=== PATIENT | male | born 1950 | race Caucasian/White ===

== ENCOUNTER 2017-05-24 14:19 | Emergency (ER) | payer OTHER, MEDICARE ==
[2017-05-24 15:40] LABS: ABSOLUTE EOSINOPHILS # (AUTO) 0.4 10^3/uL (0.0-0.6); ABSOLUTE LYMPHOCYTES (AUTO) 0.9 10^3/uL (0.5-4.7); ABSOLUTE MONOCYTES (AUTO) 0.7 10^3/uL (0.1-1.4); ABSOLUTE NEUT (AUTO) 8.6 10^3/uL (1.7-8.2); BASOPHILS % (AUTO) 0.3 % (0-2); EOSINOPHILS % (AUTO) 3.8 % (0-6); HEMATOCRIT 39.2 % (37.9-51.0); HEMOGLOBIN 13.2 g/dL (13.5-17.0); HGB HCT DIFFERENCE 0.4; LYMPHOCYTES % (AUTO) 8.8 % (13-45); MEAN CORPUSCULAR HEMOGLOBIN 29.8 pg (27.0-33.4); MEAN CORPUSCULAR HGB CONC 33.7 g/dL (32.0-36.0); MEAN CORPUSCULAR VOLUME 88 fl (80-97); MONOCYTES % (AUTO) 6.8 % (3-13); RED BLOOD COUNT 4.44 10^6/uL (4.35-5.55); RED CELL DISTRIBUTION WIDTH 13.9 % (11.5-14.0); SEGMENTED NEUTROPHILS % (AUTO) 80.3 % (42-78); WHITE BLOOD COUNT 10.7 10^3/uL (4.0-10.5)
[2017-05-24 16:07] LABS: ALANINE AMINOTRANSFERASE 38 U/L (21-72); ALBUMIN 4.5 g/dL (3.5-5.0); ALKALINE PHOSPHATASE 94 U/L (38-126); ANION GAP 12 (5-19); ASPARTATE AMINO TRANSFERASE 32 U/L (17-59); BILIRUBIN,DIRECT 0.3 mg/dL (0.0-0.4); BILIRUBIN,TOTAL 0.6 mg/dL (0.2-1.3); BLOOD UREA NITROGEN 24 mg/dL (7-20); CALCIUM 9.6 mg/dL (8.4-10.2); CARBON DIOXIDE 24 mmol/L (22-30); CHLORIDE 103 mmol/L (98-107); CREATININE RESULT 1.11 mg/dL (0.52-1.25); GLUCOSE 163 mg/dL (75-110); POTASSIUM 4.7 mmol/L (3.6-5.0); SODIUM 138.5 mmol/L (137-145); TOTAL PROTEIN 8.1 g/dL (6.3-8.2)
[2017-05-24] MEDS ORDERED: HYDROMORPHONE HCL INJ/PF 2 MG/ML AMPULE IV ONE (16:22)
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
[2017-05-24 17:30] VITALS: BP 140/79
== END 2017-05-24 17:31 | disposition home or self-care (01) ==
LOC: ER 14:19
DX: S10.93XA Contusion of unspecified part of neck, initial encounter (principal); M54.5 Low back pain; V89.2XXA Person injured in unspecified motor-vehicle accident, traffic, initial encounter
CPT/HCPCS: 99284; 36415; 85025; 80053; 70450; 71260; 72125; 74177; J1170

== ENCOUNTER → 2018-02-15 | Outpatient (CLI) | payer MEDICARE ==
--- NOTE | 2018-02-15 12:01 | RADIOLOGY REPORT (SQ) ---
EXAM DESCRIPTION: VENOUS BILATERAL LOWER COMPLETED DATE/TIME: 02/15/2018 11:52 am REASON FOR STUDY: SWELLING R22.43 LOCALIZED SWELLING, MASS AND LUMP, LOWER LIMB, BILATE COMPARISON: None. TECHNIQUE: Dynamic and static charles scale and color images acquired of both lower extremity venous sy stems. Selected spectral images acquired with additional compression and augmentation maneuvers. Imag es stored on PACS. LIMITATIONS: None. FINDINGS: RIGHT LEG COMMON FEMORAL AND FEMORAL: Normal phasicity, compression and augmentation. No visualized echogenic m aterial on charles scale. No defects on color images. POPLITEAL: Normal compression and augmentation. No visualized echogenic material on charles scale. No de fects on color images. CALF VESSELS: Normal compression and augmentation. No visualized echogenic material on charles scale. No defects on color image. GSV AND SSV: Normal compression. No visualized echogenic material on charles scale. No defects on color images. ANY DEEP VENOUS INSUFFICIENCY: Not evaluated. ANY EVIDENCE OF POPLITEAL CYST: No. OTHER: No other significant finding. LEFT LEG COMMON FEMORAL AND FEMORAL: Normal phasicity, compression and augmentation. No visualized echogenic m aterial on charles scale. No defects on color images. POPLITEAL: Normal compression and augmentation. No visualized echogenic material on charles scale. No de fects on color images. CALF VESSELS: Normal compression and augmentation. No visualized echogenic material on charles scale. No defects on color images. GSV AND SSV: Normal compression. No visualized echogenic material on charles scale. No defects on color images. ANY DEEP VENOUS INSUFFICIENCY: Not evaluated. ANY EVIDENCE POPLITEAL CYST: No. OTHER: No other significant finding. IMPRESSION: NO EVIDENCE DVT OR SVT IN EITHER LEG. TECHNICAL DOCUMENTATION: JOB ID: [id number] [employer]- All Rights Reserved Reading location - IP/workstation name: [email or web address]
== END ==
LOC: SP 10:36
PROVIDERS: ATTEND Internal Medicine
DX: R22.43 Localized swelling, mass and lump, lower limb, bilateral (principal)
CPT/HCPCS: 93970

== ENCOUNTER 2018-05-21 15:34 | Emergency (ER) | payer MEDICARE ==
[2018-05-21] MEDS ORDERED: DIPHENHYDRAMINE HCL 50 MG CAPSULE PO ONE (16:04)
[2018-05-21] MEDS ORDERED: NORMAL SALINE 500 ML IV ONE (16:06)
--- NOTE | 2018-05-21 16:13 | ER Document Report ---
ED Medical Screen (RME) - General Chief Complaint: Allergic Reaction Stated Complaint: POSSIBLE ALLERGIC REACTION Time Seen by Provider: 05/21/18 15:58 Notes: Patient is a 67-year-old male presents with 1 day of a diffuse rash on his chest wall, back and abdomen after starting doxycycline for a UTI. He took Benadryl 6 hours ago. He is scheduled for an LVAD at [facility] tomorrow. Denies palms, mouth involvement or foot involvement. PE: Diffuse macular rash. No desquamation of hands or mouth. Tachycardia. I have greeted and performed a rapid initial assessment of this patient. A comprehensive ED assessment and evaluation of the patient, analysis of test results and completion of the medical decision making process will be conducted by additional ED providers. TRAVEL OUTSIDE OF THE [place] IN LAST 30 DAYS: No - Related Data Allergies/Adverse Reactions: No Known Allergies Allergy (Verified 05/21/18 15:36) Past Medical History - Social History Chew tobacco use (# tins/day): No Frequency of alcohol use: None Drug Abuse: None - Past Medical History Cardiac Medical History: Reports: Hx Congestive Heart Failure Renal/ Medical History: Denies: Hx Peritoneal Dialysis - Immunizations Hx Diphtheria, Pertussis, Tetanus Vaccination: No Physical Exam - Vital signs Vitals: Pulse Resp BP Pulse Ox 107 H 16 93/65 L 100 05/21/18 15:41 05/21/18 15:41 05/21/18 15:41 05/21/18 15:41 Course - Vital Signs Vital signs: Temp Pulse Resp BP Pulse Ox 107 H 16 93/65 L 100 05/21/18 15:41 05/21/18 15:41 05/21/18 15:41 05/21/18 15:41 Doctor's Discharge - Discharge Referrals: SCOTT HATFIELD MD [Primary Care Provider] - Follow up as needed
[2018-05-21 16:24] LABS: ABSOLUTE EOSINOPHILS # (AUTO) 0.1 10^3/uL (0.0-0.6); ABSOLUTE LYMPHOCYTES (AUTO) 0.5 10^3/uL (0.5-4.7); ABSOLUTE MONOCYTES (AUTO) 0.5 10^3/uL (0.1-1.4); ABSOLUTE NEUT (AUTO) 8.2 10^3/uL (1.7-8.2); BASOPHILS % (AUTO) 0.3 % (0-2); EOSINOPHILS % (AUTO) 1.5 % (0-6); HEMATOCRIT 38.8 % (37.9-51.0); HEMOGLOBIN 12.9 g/dL (13.5-17.0); LYMPHOCYTES % (AUTO) 5.1 % (13-45); MEAN CORPUSCULAR HGB CONC 33.2 g/dL (32.0-36.0); MEAN CORPUSCULAR VOLUME 84 fl (80-97); MONOCYTES % (AUTO) 5.5 % (3-13); PLATELET COUNT 168 10^3/uL (150-450); RED BLOOD COUNT 4.59 10^6/uL (4.35-5.55); SEGMENTED NEUTROPHILS % (AUTO) 87.6 % (42-78); TOTAL CELLS COUNTED % (AUTO) 100 %; WHITE BLOOD COUNT 9.4 10^3/uL (4.0-10.5)
[2018-05-21] MEDS ORDERED: METHYLPREDNISOLONE INJ 125 MG/2 ML SDV IV ONE (16:36)
[2018-05-21] MEDS ORDERED: DIPHENHYDRAMINE HCL 50 MG/ML VIAL IV ONE (16:36)
--- NOTE | 2018-05-21 16:45 | ER Document Report ---
ED General - General Chief Complaint: Allergic Reaction Stated Complaint: POSSIBLE ALLERGIC REACTION Time Seen by Provider: 05/21/18 15:58 Mode of Arrival: Ambulatory Information source: Patient, Relative, Dr. Arellano, [facility] Records Notes: 67-year-old male with congestive heart failure, coronary artery disease diabetes , hypertension presents with complaint of rash that started 1 day prior to arrival. Patient was placed on doxycycline for urinary tract infection 5 days prior to arrival. Daughter is at the bedside and states that yesterday patient developed a rash on his chest, back and upper legs. She immediately stopped the antibiotic and administered Benadryl. Today the rash worsened and patient had associated shortness of breath which has now resolved. Patient's urologist Dr. Espinosa advised to be seen in the emergency department. Patient was now placed on Bactrim. Patient denies difficulty swallowing, chest and abdominal pain. [facility] for an [facility]. TRAVEL OUTSIDE OF THE [place] IN LAST 30 DAYS: No - HPI Onset: Yesterday Onset/Duration: Gradual, Persistent, Worse Quality of pain: No pain Severity: None Associated symptoms: Shortness of breath Exacerbated by: Denies Relieved by: Denies Similar symptoms previously: No Recently seen / treated by doctor: Yes - Related Data Allergies/Adverse Reactions: doxycycline Allergy (Verified 05/21/18 16:39) Past Medical History - General Information source: Patient, Relative, Dr. Arellano, [facility] Records - Social History Smoking Status: Former Smoker Chew tobacco use (# tins/day): No Frequency of alcohol use: None Drug Abuse: None Lives with: Family Family History: Reviewed & Not Pertinent Patient has suicidal ideation: No Patient has homicidal ideation: No - Past Medical History Cardiac Medical History: Reports: Hx Congestive Heart Failure, Hx Coronary Artery Disease, Hx Hypertension Endocrine Medical History: Reports: Hx Diabetes Mellitus Type 1 Renal/ Medical History: Denies: Hx Peritoneal Dialysis - Immunizations Hx Diphtheria, Pertussis, Tetanus Vaccination: No Hx Pneumococcal Vaccination: 07/04/13 Review of Systems - Review of Systems Constitutional: Malaise, Weakness - Ongoing EENT: No symptoms reported Cardiovascular: denies: Syncope Respiratory: Short of breath - Resolved, Wheezing Gastrointestinal: No symptoms reported Genitourinary: No symptoms reported Male Genitourinary: No symptoms reported Musculoskeletal: No symptoms reported Skin: Rash Hematologic/Lymphatic: No symptoms reported Neurological/Psychological: denies: Lost consciousness, Headaches -: Yes All other systems reviewed and negative Physical Exam - Vital signs Vitals: Pulse Resp BP Pulse Ox 107 H 16 93/65 L 100 05/21/18 15:41 05/21/18 15:41 05/21/18 15:41 05/21/18 15:41 - Notes Notes: PHYSICAL EXAMINATION: GENERAL: Well-appearing, well-nourished and in no acute distress. HEAD: Atraumatic, normocephalic. EYES: Pupils equal round and reactive to light, extraocular movements intact, sclera anicteric, conjunctiva are normal. ENT: Nares patent, oropharynx clear without exudates. Moist mucous membranes. No oral lesions NECK: Normal range of motion, supple without lymphadenopathy LUNGS: Breath sounds clear to auscultation bilaterally and equal. No wheezes rales or rhonchi. HEART: Regular rate and rhythm without murmurs ABDOMEN: Soft, nontender, nondistended abdomen. No guarding, no rebound. No masses appreciated. Musculoskeletal: Normal range of motion, no pitting or edema. No cyanosis. NEUROLOGICAL: Cranial nerves grossly intact. Normal speech, normal gait. Normal sensory, motor exams PSYCH: Normal mood, normal affect. SKIN: Diffuse urticaria of the trunk, consistent with drug rash, no skin sloughing Course - Re-evaluation Re-evalutation: Laboratory 05/21/18 05/21/18 16:10 16:10 WBC 9.4 RBC 4.59 Hgb 12.9 L Hct 38.8 MCV 84 MCH 28.0 MCHC 33.2 RDW 20.0 H Plt Count 168 Seg Neutrophils % 87.6 H Lymphocytes % 5.1 L Monocytes % 5.5 Eosinophils % 1.5 Basophils % 0.3 Absolute Neutrophils 8.2 Absolute Lymphocytes 0.5 Absolute Monocytes 0.5 Absolute Eosinophils 0.1 Absolute Basophils 0.0 Sodium 139.8 Potassium 4.8 Chloride 100 Carbon Dioxide 23 Anion Gap 17 BUN 96 H Creatinine 1.26 H Est GFR ( Amer) > 60 Est GFR (Non-Af Amer) 57 L Glucose 188 H Calcium 9.9 Total Bilirubin 1.5 H Direct Bilirubin 1.0 H Neonat Total Bilirubin Not Reportable Neonat Direct Bilirubin Not Reportable Neonat Indirect Bili Not Reportable AST 33 ALT 20 L Alkaline Phosphatase 110 Total Protein 9.0 H Albumin 4.2 Chest X-Ray 05/21/18 16:15 IMPRESSION: Left lung base findings are nonspecific, and may represent a developing pneumonitis, scarring, and/or a small pleural effusion. 05/21/18 22:51 67-year-old male with congestive heart failure, coronary artery disease diabetes , hypertension presents with complaint of rash that started 1 day prior to arrival. Patient was placed on doxycycline for urinary tract infection 5 days prior to arrival. Daughter is at the bedside and states that yesterday patient developed a rash on his chest, back and upper legs. She immediately stopped the antibiotic and administered Benadryl. Today the rash worsened and patient had associated shortness of breath which has now resolved. Patient's urologist Dr. Espinosa advised to be seen in the emergency department. Patient was now placed on Bactrim. Patient denies difficulty swallowing, chest and abdominal pain. Patient is [facility] to [facility] in preparation for an LVAD. Patient received Benadryl, prednisone, IV fluids during his ED course. On reevaluation he reports an improvement in his shortness of breath. Rash is still present. No evidence of Eddy-Santana's. Patient provided the opportunity to ask questions, and express concerns. Discharge instructions discussed. Patient is agreeable with discharge home. Return indications explained and discussed with the patient who displays understanding. Patient encouraged to return to the emergency department immediately with any concerns. 05/21/18 22:52 - Vital Signs Vital signs: Temp Pulse Resp BP Pulse Ox 107 H 19 93/77 L 92 05/21/18 15:41 05/21/18 18:01 05/21/18 18:01 05/21/18 18:01 - Laboratory Result Diagrams: 05/21/18 16:10 05/21/18 16:10 Laboratory results interpreted by me: 05/21/18 05/21/18 16:10 16:10 Hgb 12.9 L RDW 20.0 H Seg Neutrophils % 87.6 H Lymphocytes % 5.1 L BUN 96 H Creatinine 1.26 H Est GFR (Non-Af Amer) 57 L Glucose 188 H Total Bilirubin 1.5 H Direct Bilirubin 1.0 H ALT 20 L Total Protein 9.0 H - Diagnostic Test Radiology reviewed: Image reviewed, Reports reviewed Discharge - Discharge Clinical Impression: Drug rash Allergic reaction Qualifiers: Encounter type: initial encounter Qualified Code(s): T78.40XA - Allergy, unspecified, initial encounter Condition: Good Disposition: HOME, SELF-CARE Instructions: Acute Allergic Reaction ([facility]), Acute Allergic Reaction to Drugs ( [facility]) Additional Instructions: Follow up with your physician tomorrow for further care or return to the ED IMMEDIATELY if symptoms worsen or new concerns occur. If you cannot afford to follow up with your primary care physician a list of low cost clinics have been provided at the end of your discharge papers as well. Referrals: SCOTT HATFIELD MD [Primary Care Provider] - Follow up as needed
[2018-05-21 16:49] LABS: ALANINE AMINOTRANSFERASE 20 U/L (21-72); ALBUMIN 4.2 g/dL (3.5-5.0); ALKALINE PHOSPHATASE 110 U/L (38-126); ANION GAP 17 (5-19); ASPARTATE AMINO TRANSFERASE 33 U/L (17-59); BILIRUBIN,TOTAL 1.5 mg/dL (0.2-1.3); BLOOD UREA NITROGEN 96 mg/dL (7-20); CALCIUM 9.9 mg/dL (8.4-10.2); CARBON DIOXIDE 23 mmol/L (22-30); CHLORIDE 100 mmol/L (98-107); GLUCOSE 188 mg/dL (75-110); POTASSIUM 4.8 mmol/L (3.6-5.0); SODIUM 139.8 mmol/L (137-145)
--- NOTE | 2018-05-21 16:55 | RADIOLOGY REPORT (SQ) ---
EXAM DESCRIPTION: CHEST SINGLE VIEW COMPLETED DATE/TIME: 05/21/2018 4:46 pm REASON FOR STUDY: SOB COMPARISON: 05/24/2017 EXAM PARAMETERS: NUMBER OF VIEWS: One view. TECHNIQUE: Single frontal radiographic view of the chest acquired. RADIATION DOSE: NA LIMITATIONS: None. FINDINGS: LUNGS AND PLEURA: Blunting and hazy opacification of the left costophrenic angle. No foca l consolidation. No pneumothorax. MEDIASTINUM AND HILAR STRUCTURES: No masses. Contour normal. HEART AND VASCULAR STRUCTURES: Borderline cardiomegaly. Central vasculature appears normal. BONES: No acute findings. HARDWARE: None in the chest. OTHER: No other significant finding. IMPRESSION: Left lung base findings are nonspecific, and may represent a developing pneumonitis, sca rring, and/or a small pleural effusion. TECHNICAL DOCUMENTATION: JOB ID: [id number] [employer]- All Rights Reserved Reading location - IP/workstation name: [email or web address]
[2018-05-21 18:55] VITALS: BP 93/77
== END 2018-05-21 19:05 | disposition home or self-care (01) ==
LOC: ER 15:34
DX: L27.0 Generalized skin eruption due to drugs and medicaments taken internally (principal); T36.4X5A Adverse effect of tetracyclines, initial encounter; R06.02 Shortness of breath; I50.9 Heart failure, unspecified; I25.10 Atherosclerotic heart disease of native coronary artery without angina pectoris; I11.0 Hypertensive heart disease with heart failure; E10.9 Type 1 diabetes mellitus without complications; Z87.891 Personal history of nicotine dependence
CPT/HCPCS: 99284; 96361; 96374; 36415; 85025; 80053; 71045; A9270; J2930; J7040

== ENCOUNTER 2018-06-17 12:54 | Emergency (ER) | payer MEDICARE ==
--- NOTE | 2018-06-17 13:22 | ER Document Report ---
ED General - General Chief Complaint: General Weakness Stated Complaint: WEAKNESS Time Seen by Provider: 06/17/18 13:05 Information source: Patient, Emergency Med Personnel Notes: Patient is a very kind 67-year-old male with an extensive past medical history including a recent injection fraction calculation around 20% with discharge from [facility] around 5 days ago after defibrillator was placed. The patient was actually discharged with port access IV drip dobutamine. Patient presents today because he states he has had some increased shortness of breath when laying flat as well as some bilateral lower extremity edema that he states has developed since being discharged from the hospital. He denies any and all chest pain, fevers, cough, abdominal pain or swelling, or vomiting/diarrhea. Patient states he was told that if this trial was not successful that the patient was most likely be transferred to an LVAD. TRAVEL OUTSIDE OF THE [place] IN LAST 30 DAYS: No - HPI Onset: Other - See above Onset/Duration: Gradual Quality of pain: No pain Severity: Moderate Pain Level: Denies Associated symptoms: Weakness, Other - See above Exacerbated by: Supine, Walking Relieved by: Denies Similar symptoms previously: Yes Recently seen / treated by doctor: Yes - Related Data Allergies/Adverse Reactions: doxycycline Allergy (Verified 05/21/18 16:39) Past Medical History - General Information source: Patient - Social History Smoking Status: Unknown if Ever Smoked Cigarette use (# per day): No Chew tobacco use (# tins/day): No Smoking Education Provided: No Frequency of alcohol use: None Drug Abuse: None Family History: Reviewed & Not Pertinent - Past Medical History Cardiac Medical History: Reports: Hx Congestive Heart Failure, Hx Coronary Artery Disease, Hx Hypertension Endocrine Medical History: Reports: Hx Diabetes Mellitus Type 1 Renal/ Medical History: Denies: Hx Peritoneal Dialysis - Immunizations Hx Diphtheria, Pertussis, Tetanus Vaccination: No Hx Pneumococcal Vaccination: 07/04/13 Review of Systems - Review of Systems Constitutional: denies: Fever EENT: denies: Eye discharge, Nose discharge Cardiovascular: denies: Chest pain, Palpitations Respiratory: Short of breath. denies: Cough, Hemoptysis, Wheezing Gastrointestinal: denies: Vomiting Genitourinary: denies: Dysuria Skin: Other - no hives. denies: Rash Neurological/Psychological: Other - no slurred speech -: Yes All other systems reviewed and negative Physical Exam - Vital signs Vitals: Resp BP Pulse Ox 20 97/64 L 100 06/17/18 13:03 06/17/18 13:03 06/17/18 13:03 Notes: Reviewed vital signs and nursing note as charted by RN. CONSTITUTIONAL: Alert and oriented and responds appropriately to questions. Well -appearing; well-nourished HEAD: Normocephalic; atraumatic EYES: PERRL; Conjunctivae clear, sclerae non-icteric ENT: Normal nose; no rhinorrhea; moist mucous membranes; pharynx without lesions noted NECK: Supple without meningismus; non-tender CARD: Regular rate and rhythm; no murmurs; symmetric distal pulses RESP: Normal chest excursion without splinting or tachypnea; breath sounds clear and equal bilaterally; no rhonchi or wheezes. Some mild bilateral lower lung Joyce ABD/GI: Normal bowel sounds; non-distended; soft, non-tender BACK: The back appears normal and is non-tender to palpation EXT: Normal ROM in all joints; non-tender to palpation; no edema SKIN: No acute lesions noted NEURO: Moves all extremities equally; Motor and sensory function intact PSYCH: The patient's mood and manner are appropriate. Grooming and personal hygiene are appropriate Course - Re-evaluation Re-evalutation: 06/17/18 13:16 Given the above history and physical examination, we will place the patient on the monitor. Vital signs are stable with a blood pressure of 95/57. Patient's dobutamine pump still in place so we will not manipulate this at this time. I have asked the patient repeatedly if he feels as if the shortness of breath when supine something new since being discharged. He states that it is. I have questioned him multiple times whether he believes this is anxiety related or more just the shortness of breath from his heart failure. He states given the leg swelling, with a worsening shortness of breath when reclined, he believes that this is exacerbation of his shortness of breath. EKG shows heart of 94, normal sinus rhythm, left bundle branch block. Patient states he has a history of left bundle branch block. 06/17/18 15:25 Vital signs are stable. BNP is recorded. It appears the patient has acute renal failure. This is compared to a creatinine of 1.211 month ago. I have called [facility] for consultation/transfer. Vital signs are stable. Initial troponin as recorded. Patient still denies any pain. X-ray of the chest on my preliminary interpretation shows persistent cardiomegaly with some increased lung aeration. No obvious infiltrates with bilateral effusions. 06/17/18 15:38 I called and spoke to Dr. Coley. I have explained the full history and physical including the laboratory values. He actually states he does not want me to give fluid at this time. I have discussed the potassium of 5.4 and he is recommended a dose of Kayexalate. They have accepted the transport for admission at [facility]. - Vital Signs Vital signs: Temp Pulse Resp BP Pulse Ox 97.2 F 96 0 L 99/64 L 95 06/17/18 13:08 06/17/18 13:08 06/17/18 14:30 06/17/18 14:30 06/17/18 14:30 - Laboratory Result Diagrams: 06/17/18 13:53 06/17/18 13:53 Laboratory results interpreted by me: 06/17/18 06/17/18 13:53 13:53 Sodium 135.0 L Potassium 5.4 H Chloride 94 L Carbon Dioxide 21 L Anion Gap 20 H BUN 139 H Creatinine 2.51 H Est GFR ( Amer) 31 L Est GFR (Non-Af Amer) 26 L Glucose 137 H NT-Pro-B Natriuret Pep 57725 H Discharge - Discharge Clinical Impression: Acute decompensated heart failure Acute renal failure Qualifiers: Acute renal failure type: unspecified Qualified Code(s): N17.9 - Acute kidney failure, unspecified Condition: Serious Disposition: [place] Referrals: SCOTT HATFIELD MD [Primary Care Provider] - Follow up as needed
--- NOTE | 2018-06-17 13:56 | RADIOLOGY REPORT (SQ) ---
EXAM DESCRIPTION: CHEST 2 VIEWS COMPLETED DATE/TIME: 06/17/2018 1:46 pm REASON FOR STUDY: 11, sob; on dobutamine drip 2/2 heart failure COMPARISON: None. EXAM PARAMETERS: NUMBER OF VIEWS: two views TECHNIQUE: Digital Frontal and Lateral radiographic views of the chest acquired. RADIATION DOSE: NA LIMITATIONS: none FINDINGS: LUNGS AND PLEURA: Interval decrease in bibasilar infiltrates or atelectasis with effusions . MEDIASTINUM AND HILAR STRUCTURES: No masses or contour abnormalities. HEART AND VASCULAR STRUCTURES: Borderline cardiac size. Interval decrease in pulmonary vascular melanie estion. BONES: Dorsal spondylosis. HARDWARE: Left transvenous unipolar pacemaker lead in place. OTHER: Right central venous line with tip overlying SVC. IMPRESSION: Improved aeration in both lung bases with persistent bilateral pleural effusions. Cardi omegaly. Decrease in pulmonary vascular congestion. TECHNICAL DOCUMENTATION: JOB ID: [id number] [employer]- All Rights Reserved Reading location - IP/workstation name: [email or web address]
[2018-06-17 14:47] LABS: CALCIUM 9.3 mg/dL (8.4-10.2); GLUCOSE 137 mg/dL (75-110); POTASSIUM 5.4 mmol/L (3.6-5.0)
[2018-06-17 14:57] LABS: CARBON DIOXIDE 21 mmol/L (22-30); CHLORIDE 94 mmol/L (98-107)
[2018-06-17 15:00] LABS: ANION GAP 20 (5-19); BLOOD UREA NITROGEN 139 mg/dL (7-20)
[2018-06-17 15:06] LABS: TROPONIN I 0.074 ng/mL
[2018-06-17] MEDS ORDERED: SODIUM POLYSTYRENE SULFONATE 15 GM/60 ML PO ONE (15:37)
[2018-06-17 16:21] LABS: ABSOLUTE EOSINOPHILS # (AUTO) 0.2 10^3/uL (0.0-0.6); ABSOLUTE LYMPHOCYTES (AUTO) 0.4 10^3/uL (0.5-4.7); ABSOLUTE MONOCYTES (AUTO) 0.7 10^3/uL (0.1-1.4); ABSOLUTE NEUT (AUTO) 6.3 10^3/uL (1.7-8.2); BASOPHILS % (AUTO) 0.6 % (0-2); EOSINOPHILS % (AUTO) 2.1 % (0-6); HEMATOCRIT 32.7 % (37.9-51.0); HEMOGLOBIN 10.6 g/dL (13.5-17.0); LYMPHOCYTES % (AUTO) 5.2 % (13-45); MEAN CORPUSCULAR HEMOGLOBIN 28.9 pg (27.0-33.4); MEAN CORPUSCULAR HGB CONC 32.5 g/dL (32.0-36.0); MONOCYTES % (AUTO) 8.8 % (3-13); PLATELET COUNT 157 10^3/uL (150-450); RED BLOOD COUNT 3.68 10^6/uL (4.35-5.55); RED CELL DISTRIBUTION WIDTH 21.1 % (11.5-14.0); SEGMENTED NEUTROPHILS % (AUTO) 83.3 % (42-78); TOTAL CELLS COUNTED % (AUTO) 100 %; WHITE BLOOD COUNT 7.5 10^3/uL (4.0-10.5)
[2018-06-17 16:22] LABS: MEAN CORPUSCULAR VOLUME 89 fl (80-97)
[2018-06-17] MEDS ORDERED: ONDANSETRON 4 MG TAB.RAPDIS PO ONE (18:36)
[2018-06-17 22:31] VITALS: BP 93/66
--- NOTE | 2018-06-18 10:02 | EKG REPORT ---
SEVERITY:- ABNORMAL ECG - SINUS RHYTHM PROBABLE LEFT ATRIAL ABNORMALITY LEFT BUNDLE BRANCH BLOCK : Confirmed by: Mi Chua 18-Jun-2018 10:01:20
== END 2018-06-17 22:10 | disposition short-term general hospital (02) ==
LOC: ER 12:54
DX: I11.0 Hypertensive heart disease with heart failure (principal); I50.9 Heart failure, unspecified; N17.9 Acute kidney failure, unspecified; R53.1 Weakness; I25.10 Atherosclerotic heart disease of native coronary artery without angina pectoris; Z95.810 Presence of automatic (implantable) cardiac defibrillator; R06.02 Shortness of breath; Z88.1 Allergy status to other antibiotic agents
CPT/HCPCS: 93005; 99285; 36415; 82962; 85025; 80048; 84484; 83880; 71046; 93010; A9270; S0119